=== PATIENT | male | born 1975 | race African-American/Black ===

== ENCOUNTER → 2017-04-14 | Emergency (ER) | payer OTHER ==
[~2017-04-14] VITALS: Ht 190.5 cm; Wt 131.5 kg
[~2017-04-14] MED LIST: CLARITIN-D 24 H1 TAB PO; FLONASE 0.05%50 MCG NASAL; GUAIFENESIN WI120 ML PO; NOHOMEMEDICATIONS; NORCO 5-325 TA1 EACH PO; PENICILLIN VK500 M1 PO; PROMETHAZINE-C120 ML PO; PROVENTIL HFA6.7 G1 INH; ZPAK PO
[2017-04-14 14:54] VITALS: BP 133/92
== END ==
LOC: ER 13:54
DX: K04.7 Periapical abscess without sinus (principal); J06.9 Acute upper respiratory infection, unspecified; F17.210 Nicotine dependence, cigarettes, uncomplicated